=== PATIENT | female | born 1965 | race Caucasian/White ===

== ENCOUNTER → 2017-01-01 | Outpatient (REF) | LOC: LAB 11:19 | DX: Z02.89 Encounter for other administrative examinations (principal); Z02.1 Encounter for pre-employment examination ==

== ENCOUNTER → 2018-03-29 | Outpatient (CLI) | payer BC, OTHER | LOC: MAMMO 15:42 | DX: Z12.31 Encounter for screening mammogram for malignant neoplasm of breast (principal); Z98.890 Other specified postprocedural states ==

== ENCOUNTER → 2018-06-06 | Day surgery (SDC) | payer BC, OTHER | LOC: MSO 07:28 | DX: Z12.11 Encounter for screening for malignant neoplasm of colon (principal); Z86.2 Personal history of diseases of the blood and blood-forming organs and certain disorders involving the immune mechanism; Z85.3 Personal history of malignant neoplasm of breast; Z85.850 Personal history of malignant neoplasm of thyroid; Z79.899 Other long term (current) drug therapy; E66.9 Obesity, unspecified | CPT/HCPCS: 00811; A4649; J2704; J3010; J7120 ==

== ENCOUNTER → 2018-08-29 | Outpatient (CLI) | payer BC, OTHER ==
[~2018-08-29] VITALS: Ht 165.1 cm; Wt 63.6 kg
[~2018-08-29] MED LIST: FLUTICASON0.05 MG/AC NS; LEVOTHYROXINE112 MCG PO
[2018-08-29 17:20] VITALS: BP 109/73
== END ==
LOC: AMSURD 17:08
DX: Z01.818 Encounter for other preprocedural examination (principal); N95.0 Postmenopausal bleeding

== ENCOUNTER → 2019-02-15 | Outpatient (CLI) | payer BC, OTHER ==
[2018-08-29 17:20] VITALS: BP 109/73
== END ==
LOC: RAD 16:15
DX: M77.32 Calcaneal spur, left foot (principal)

== ENCOUNTER → 2019-02-22 | Outpatient (CLI) | payer BC, OTHER ==
[2018-08-29 17:20] VITALS: BP 109/73
== END ==
LOC: RAD 06:46
DX: M67.874 Other specified disorders of tendon, left ankle and foot (principal); M25.872 Other specified joint disorders, left ankle and foot

== ENCOUNTER → 2019-03-30 | Outpatient (CLI) | payer BC, OTHER ==
[2018-08-29 17:20] VITALS: BP 109/73
== END ==
LOC: MAMMO 07:53
DX: Z12.31 Encounter for screening mammogram for malignant neoplasm of breast (principal); Z90.11 Acquired absence of right breast and nipple

== ENCOUNTER → 2019-04-24 | Outpatient (CLI) | payer BC, OTHER ==
[2018-08-29 17:20] VITALS: BP 109/73
[2019-04-24 17:06] LABS: EOS # 0.1 (0.04-0.40); EOS % 1.9 % (1.0-5.0); HEMATOCRIT 42.3 % (37.0-47.0); HEMOGLOBIN 13.6 g/dL (12.5-16.0); LYMPH# 1.4 (1.50-4.00); MEAN CELL VOLUME 89 fl (78-100); MEAN CORPUSCULAR HEMOGLOBIN 29 pg (27-31); MEAN CORPUSCULAR HGB CONC 32 g/dL (33-37); MEAN PLATELET VOLUME 11.2 fl (7.4-10.4); MONO # 0.5 (0.20-0.80); NEU # 4.3 (1.40-6.50); PLATELET COUNT 201 K/mm3 (130-400); RED BLOOD COUNT 4.76 M/mm3 (4.10-5.30); RED CELL DISTRIBUTION WIDTH 14.3 % (11.5-14.5); WHITE BLOOD COUNT 6.3 K/mm3 (4.8-10.8)
[2019-04-24 17:10] LABS: ALBUMIN 4.1 g/dL (3.5-5.0); POTASSIUM 3.9 mmol/L (3.5-5.1)
[2019-04-24 17:11] LABS: CALCIUM 9.2 mg/dL (8.3-10.5)
[2019-04-24 17:12] LABS: TOTAL PROTEIN 6.7 g/dL (6.4-8.3)
[2019-04-24 17:14] LABS: TOTAL BILIRUBIN 0.5 mg/dL (0.2-1.2)
== END ==
LOC: LAB 16:09
PROVIDERS: Family Medicine
DX: Z00.00 Encounter for general adult medical examination without abnormal findings (principal); Z13.220 Encounter for screening for lipoid disorders; E03.9 Hypothyroidism, unspecified

== ENCOUNTER 2019-04-27 11:30 | Outpatient (RCR) | payer BC, OTHER ==
[2018-08-29 17:20] VITALS: BP 109/73
== END 2019-04-27 12:00 | disposition still patient (30) ==
LOC: PT 11:30
DX: M65.872 Other synovitis and tenosynovitis, left ankle and foot (principal)

== ENCOUNTER → 2019-04-27 | Outpatient (CLI) | payer BC, OTHER ==
[2018-08-29 17:20] VITALS: BP 109/73
== END ==
LOC: MAMMO 13:00
DX: Z98.890 Other specified postprocedural states (principal)

== ENCOUNTER → 2020-04-03 | Outpatient (CLI) | payer BC, OTHER ==
[2018-08-29 17:20] VITALS: BP 109/73
== END ==
LOC: MAMMO 15:40
DX: Z12.31 Encounter for screening mammogram for malignant neoplasm of breast (principal); Z90.13 Acquired absence of bilateral breasts and nipples

== ENCOUNTER → 2020-06-21 | Outpatient (CLI) | payer BC, OTHER ==
[2018-08-29 17:20] VITALS: BP 109/73
[2020-06-21 17:07] LABS: EOS # 0.1 (0.04-0.40); EOS % 1.7 % (1.0-5.0); HEMATOCRIT 45.7 % (37.0-47.0); HEMOGLOBIN 14.8 g/dL (12.5-16.0); LYMPH# 1.7 (1.50-4.00); MEAN CELL VOLUME 88 fl (78-100); MEAN CORPUSCULAR HEMOGLOBIN 29 pg (27-31); MEAN CORPUSCULAR HGB CONC 32 g/dL (33-37); MEAN PLATELET VOLUME 10.2 fl (7.4-10.4); MONO # 0.6 (0.20-0.80); NEU # 3.5 (1.40-6.50); PLATELET COUNT 200 K/mm3 (130-400); RED BLOOD COUNT 5.18 M/mm3 (4.10-5.30); RED CELL DISTRIBUTION WIDTH 12.8 % (11.5-14.5); WHITE BLOOD COUNT 5.9 K/mm3 (4.8-10.8)
[2020-06-21 17:21] LABS: ALBUMIN 4.2 g/dL (3.5-5.0); POTASSIUM 4.2 mmol/L (3.5-5.1)
[2020-06-21 17:22] LABS: CALCIUM 9.1 mg/dL (8.3-10.5)
[2020-06-21 17:25] LABS: TOTAL BILIRUBIN 0.7 mg/dL (0.2-1.2)
== END ==
LOC: LAB 16:55
PROVIDERS: Family Medicine
DX: Z00.00 Encounter for general adult medical examination without abnormal findings (principal); E78.5 Hyperlipidemia, unspecified; E03.9 Hypothyroidism, unspecified; E55.9 Vitamin D deficiency, unspecified

== ENCOUNTER → 2021-04-08 | Outpatient (CLI) | payer OTHER | LOC: MAMMO 15:48 | DX: Z12.31 Encounter for screening mammogram for malignant neoplasm of breast (principal) ==

== ENCOUNTER → 2021-06-23 | Outpatient (CLI) | payer OTHER ==
[2021-06-23 17:08] LABS: BASO # 0.03 K/mm3 (0.02-0.10); EOS # 0.09 K/mm3 (0.04-0.40); EOS % 1.8 % (1.0-5.0); HEMATOCRIT 47.3 % (37.0-47.0); HEMOGLOBIN 15.4 g/dL (12.5-16.0); LYMPH# 1.51 K/mm3 (1.50-4.00); MEAN CELL VOLUME 89 fl (78-100); MEAN CORPUSCULAR HEMOGLOBIN 29 pg (27-31); MEAN CORPUSCULAR HGB CONC 33 g/dL (33-37); MEAN PLATELET VOLUME 9.7 fl (7.4-10.4); NEU # 3.05 K/mm3 (1.40-6.50); PLATELET COUNT 190 K/mm3 (130-400); RED BLOOD COUNT 5.29 M/mm3 (4.10-5.30); RED CELL DISTRIBUTION WIDTH 12.8 % (11.5-14.5); WHITE BLOOD COUNT 5.1 K/mm3 (4.8-10.8)
[2021-06-23 17:27] LABS: ALBUMIN 4.6 g/dL (3.5-5.0); POTASSIUM 3.7 mmol/L (3.5-5.1)
[2021-06-23 17:28] LABS: CALCIUM 9.5 mg/dL (8.3-10.5)
[2021-06-23 17:29] LABS: TOTAL PROTEIN 7.6 g/dL (6.4-8.3)
[2021-06-23 17:31] LABS: TOTAL BILIRUBIN 0.7 mg/dL (0.2-1.2)
== END ==
LOC: LAB 16:54
PROVIDERS: Family Medicine
DX: Z00.00 Encounter for general adult medical examination without abnormal findings (principal); E55.9 Vitamin D deficiency, unspecified; E03.9 Hypothyroidism, unspecified; E78.5 Hyperlipidemia, unspecified

== ENCOUNTER → 2022-04-08 | Outpatient (CLI) | payer OTHER | LOC: MAMMO 14:25 | DX: Z12.31 Encounter for screening mammogram for malignant neoplasm of breast (principal); Z78.0 Asymptomatic menopausal state ==

== ENCOUNTER → 2022-06-29 | Outpatient (CLI) | payer OTHER ==
[2022-06-29 13:50] LABS: BASO # 0.02 K/mm3 (0.02-0.10); EOS # 0.04 K/mm3 (0.04-0.40); EOS % 0.6 % (1.0-5.0); HEMATOCRIT 44.8 % (37.0-47.0); HEMOGLOBIN 14.4 g/dL (12.5-16.0); MEAN CELL VOLUME 92 fl (78-100); MEAN CORPUSCULAR HEMOGLOBIN 30 pg (27-31); MEAN CORPUSCULAR HGB CONC 32 g/dL (33-37); MEAN PLATELET VOLUME 9.5 fl (7.4-10.4); MONO # 0.39 K/mm3 (0.20-0.80); NEU # 4.46 K/mm3 (1.40-6.50); PLATELET COUNT 200 K/mm3 (130-400); RED BLOOD COUNT 4.87 M/mm3 (4.10-5.30); RED CELL DISTRIBUTION WIDTH 12.7 % (11.5-14.5); WHITE BLOOD COUNT 6.2 K/mm3 (4.8-10.8)
[2022-06-29 13:56] LABS: ALBUMIN 4.4 g/dL (3.5-5.0); POTASSIUM 3.9 mmol/L (3.5-5.1)
[2022-06-29 13:57] LABS: CALCIUM 9.7 mg/dL (8.3-10.5)
[2022-06-29 14:00] LABS: TOTAL BILIRUBIN 0.7 mg/dL (0.2-1.2)
== END ==
LOC: LAB 13:39
PROVIDERS: Family Medicine
DX: Z00.00 Encounter for general adult medical examination without abnormal findings (principal); E78.5 Hyperlipidemia, unspecified; E03.9 Hypothyroidism, unspecified; E66.3 Overweight; E55.9 Vitamin D deficiency, unspecified

== ENCOUNTER → 2024-02-05 | Outpatient (CLI) | payer BC ==
[2024-02-05 10:22] LABS: BASO # 0.03 K/mm3 (0.02-0.10); EOS # 0.05 K/mm3 (0.04-0.40); EOS % 1.1 % (1.0-5.0); HEMATOCRIT 45.8 % (37.0-47.0); LYMPH# 0.88 K/mm3 (1.50-4.00); MEAN CELL VOLUME 90 fl (78-100); MEAN CORPUSCULAR HEMOGLOBIN 30 pg (27-31); MEAN CORPUSCULAR HGB CONC 33 g/dL (33-37); MEAN PLATELET VOLUME 9.7 fl (7.4-10.4); MONO # 0.39 K/mm3 (0.20-0.80); NEU # 3.31 K/mm3 (1.40-6.50); PLATELET COUNT 209 K/mm3 (130-400); RED BLOOD COUNT 5.08 M/mm3 (4.10-5.30); WHITE BLOOD COUNT 4.7 K/mm3 (4.8-10.8)
[2024-02-05 10:29] LABS: ALBUMIN 4.3 g/dL (3.5-5.0)
[2024-02-05 10:31] LABS: CALCIUM 10.1 mg/dL (8.3-10.5)
[2024-02-05 10:32] LABS: TOTAL PROTEIN 6.9 g/dL (6.4-8.3)
[2024-02-05 10:34] LABS: TOTAL BILIRUBIN 1.1 mg/dL (0.2-1.2)
[2024-02-05 10:40] LABS: D-DIMER 0.41 mg/L FEU (0.15-0.50)
== END ==
LOC: LAB 10:08
PROVIDERS: Physician Assistant
DX: M79.604 Pain in right leg (principal); E03.9 Hypothyroidism, unspecified; E78.5 Hyperlipidemia, unspecified

== ENCOUNTER → 2024-02-08 | Outpatient (CLI) | payer BC | LOC: RAD 16:08 | DX: M79.604 Pain in right leg (principal) ==

== ENCOUNTER → 2024-02-15 | Outpatient (CLI) | payer BC | LOC: RAD 09:12 | DX: M79.604 Pain in right leg (principal) ==

== ENCOUNTER → 2024-04-12 | Outpatient (CLI) | payer BC | LOC: MAMMO 08:13 | DX: Z12.31 Encounter for screening mammogram for malignant neoplasm of breast (principal); Z78.0 Asymptomatic menopausal state; Z85.3 Personal history of malignant neoplasm of breast ==

== ENCOUNTER → 2024-08-17 | Outpatient (CLI) | payer BC | LOC: RAD 10:12 → MAMMO 10:30 | DX: Z13.820 Encounter for screening for osteoporosis (principal); Z78.0 Asymptomatic menopausal state ==